=== PATIENT | male | born 1940 | race African-American/Black ===

== ENCOUNTER 2018-06-01 20:45 | Emergency (ER) | payer MEDICAID, MEDICARE, OTHER ==
[~2018-06-01] VITALS: Ht 182.9 cm; Wt 90.7 kg
--- NOTE | 2018-06-01 21:13 | Emergency Room Report ---
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 Per his it currently growing again. He has a history of seizure because of it. He is supposed be on Dilantin. Seizure is a rare occurrence. First time was in 2009. She witnessed a seizure today the last for a few minutes. He was tonic-clonic in nature. Continue with EMS who gave him Versed IM. He is seizure free now. He does have or trauma and incontinence. 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 This cause bleeding around the tumor and it was stopped 3 months ago. Unable to get any other history on this patient because of his postictal state. Allergies: Coded Allergies: No Known Allergies (Verified , 08/14/10) Patient History Past Medical History: see triage record, old chart reviewed, seizures, other Past Surgical History: other Pertinent Family History: none Social History: Denies: smoking Immunizations: other Reviewed Nursing Documentation: PMH: Agreed; PSxH: Agreed Nursing Documentation-PMH Hx Cardiac Problems: Yes - Stent placement Hx Hypertension: Yes Hx Diabetes: Yes Hx Seizures: Yes Review of Systems Eye: Denies: eye pain, blurred vision ENT: Denies: ear pain, nose congestion, throat swelling Respiratory: Denies: cough, shortness of breath Cardiovascular: Denies: chest pain, palpitations Gastrointestinal: Denies: abdominal pain, diarrhea, nausea, vomiting Musculoskeletal: Denies: back pain, joint pain Skin: Denies: rash Neurological: Reports: seizure; Denies: headache, numbness Endocrine: Denies: increased thirst, increased urine Hematologic/Lymphatic: Denies: easy bruising All Other Systems: negative except mentioned in HPI Physical Exam Vital Signs Date Time Temp Pulse Resp B/P (MAP) Pulse Ox O2 Delivery O2 Flow Rate FiO2 06/01/18 20:41 97.6 87 16 133/65 98 Room Air 97.5 vitals normal Sp02 EP Interpretation: reviewed, normal General Appearance: well appearing, no apparent distress, Stupor Head: normocephalic, atraumatic Eyes: bilateral eye PERRL, bilateral eye EOMI ENT: hearing grossly normal, normal pharynx, other - tongue abrasion Neck: full range of motion, supple, no meningismus Respiratory: chest non-tender, lungs clear, normal breath sounds Cardiovascular #1: regular rate, rhythm, no murmur Gastrointestinal: normal bowel sounds, non tender, no mass, no organomegaly, no bruit, non-distended Musculoskeletal: back normal, normal range of motion Neurologic: grossly normal Skin: warm/dry Procedures Critical Care Time Critical Care Time Critical care is mandated in this patient who presented with active seizure. Patient require my urgent intervention to attenuate the risks of neurological collapse which may lead to cardiovascular collapse and . Critical care time is 35 minutes excluding any reportable procedure. Critical care time included evaluation, multiple reevaluation, looking at old charts, interpreting laboratory and diagnostic data, discussing case with patient and family and consultants, and charting. Medical Decision Making Diagnostic Impression: Primary Impression: Epileptic seizure, generalized Additional Impressions: Brain mass Hematuria Qualified Codes: R31.0 - Gross hematuria Proteinuria Qualified Codes: R80.9 - Proteinuria, unspecified CARMEN (acute kidney injury) ER Course Patient presents with seizure. He has an active seizure here. Initially said that he was taking Dilantin but it was not on his medication list. I load him with Dilantin. Radiologist recommended MRI based on subtle findings on CT scan. Patient also had hematuria here. Unknown etiology. No obstruction. No infection. [facility] but [facility]. I spoke with Dr. Gayle, who accepted pt for transfer at [place]. This is based on his secondary insurance. His request transfer to [facility]. We'll go ahead and check to see if they have available beds. Laboratory Tests Test 06/01/18 22:25 06/01/18 22:30 Urine Color Fonda Urine Appearance Very cloudy Urine pH 5 (4.5-8.0) Urine Specific [place] 1.020 (1.005-1.035) Urine Protein 3+ (NEGATIVE) H Urine Glucose (UA) Negative (NEGATIVE) Urine Ketones Negative (NEGATIVE) Urine Occult Blood 5+ (NEGATIVE) H Urine Nitrite Negative (NEGATIVE) Urine Bilirubin Negative (NEGATIVE) Urine Urobilinogen 4 MG/DL (0.0-1.0) H Urine Leukocyte Esterase 3+ (NEGATIVE) H Urine RBC Tntc /HPF (0 - 0) H Urine WBC 0-2 /HPF (0 - 0) Urine Squamous Epithelial Cells Few /LPF (NONE/OCC) Urine Bacteria Few /HPF (NONE) White Blood Count 10.4 K/UL (4.8-10.8) Red Blood Count 4.27 M/UL (4.70-6.10) L Hemoglobin 13.4 G/DL (14.2-18.0) L Hematocrit 39.3 % (42.0-52.0) L Mean Corpuscular Volume 92 FL (80-99) Mean Corpuscular Hemoglobin 31.5 PG (27.0-31.0) H Mean Corpuscular Hemoglobin Concent 34.1 G/DL (32.0-36.0) Red Cell Distribution Width 12.2 % (11.6-14.8) Platelet Count 150 K/UL (150-450) Mean Platelet Volume 7.6 FL (6.5-10.1) Neutrophils (%) (Auto) 75.1 % (45.0-75.0) H Lymphocytes (%) (Auto) 16.5 % (20.0-45.0) L Monocytes (%) (Auto) 5.6 % (1.0-10.0) Eosinophils (%) (Auto) 0.5 % (0.0-3.0) Basophils (%) (Auto) 2.3 % (0.0-2.0) H Prothrombin Time 10.6 SEC (9.30-11.50) Prothromb Time International Ratio 1.0 (0.9-1.1) Activated Partial Thromboplast Time 23 SEC (23-33) Sodium Level 138 MMOL/L (136-145) Potassium Level 5.0 MMOL/L (3.5-5.1) Chloride Level 105 MMOL/L (98-107) Carbon Dioxide Level 26 MMOL/L (21-32) Anion Gap 7 mmol/L (5-15) Blood Urea Nitrogen 26 mg/dL (7-18) H Creatinine 2.0 MG/DL (0.55-1.30) H Estimat Glomerular Filtration Rate mL/min (>60) Glucose Level 168 MG/DL (74-106) H Calcium Level 8.9 MG/DL (8.5-10.1) Total Bilirubin 0.5 MG/DL (0.2-1.0) Aspartate Amino Transf (AST/SGOT) 20 U/L (15-37) Alanine Aminotransferase (ALT/SGPT) 25 U/L (12-78) Alkaline Phosphatase 142 U/L (46-116) H Total Protein 7.5 G/DL (6.4-8.2) Albumin 3.5 G/DL (3.4-5.0) Globulin 4.0 g/dL Albumin/Globulin Ratio 0.9 (1.0-2.7) L Phenytoin (Dilantin) Level < 0.5 ug/mL (10-20) L Lab Results Impression labs unremarkable EKG Diagnostic Results Rate: normal Rhythm: NSR ST Segments: no acute changes Rhythm Strip Diag. Results Rhythm Strip Time: 02:58 EP Interpretation: yes Rate: 66 Rhythm: NSR, no PVC's, no ectopy CT/MRI/US Diagnostic Results CT/MRI/US Diagnostic Results : Imaging Test Ordered: CT head Impression Read by radiologist. Area of increased density seen. May represent recurrent or residual mass. Also suspect a component of dural thickening and region of the surgical changes area. This may represent mass with subdural but less likely. Last Vital Signs Date Time Temp Pulse Resp B/P (MAP) Pulse Ox O2 Delivery O2 Flow Rate FiO2 06/01/18 20:41 97.6 87 16 133/65 98 Room Air 97.5 Status: improved Disposition: XFER SHT-TRM HOSP Condition: Stable JUSTIN GAYLE M.D. Jun 01, 2018 21:13
[2018-06-01 21:50] VITALS: BP 134/68
[2018-06-01 22:45] LABS: APPEARANCE,URINE VERY CLOUDY; BILIRUBIN, URINE NEGATIVE (NEGATIVE); COLOR,URINE ORANGE; GLUCOSE, URINE (UA) NEGATIVE (NEGATIVE); KETONES,URINE NEGATIVE (NEGATIVE); LEUKOCYTE ESTERASE ,URINE 3+ (NEGATIVE); NITRITE,URINE NEGATIVE (NEGATIVE); PH,URINE 5 (4.5-8.0); PROTEIN,URINE 3+ (NEGATIVE); UROBILINOGEN,URINE 4 MG/DL (0.0-1.0)
[2018-06-01 22:52] LABS: BASOPHILS % (AUTO) 2.3 % (0.0-2.0); EOSINOPHILS % (AUTO) 0.5 % (0.0-3.0); HEMATOCRIT 39.3 % (42.0-52.0); HEMOGLOBIN 13.4 G/DL (14.2-18.0); LYMPHOCYTES % (AUTO) 16.5 % (20.0-45.0); MEAN CORPUSCULAR VOLUME 92 FL (80-99); MONOCYTES % (AUTO) 5.6 % (1.0-10.0); NEUTROPHILS % (AUTO) 75.1 % (45.0-75.0); PLATELET COUNT 150 K/UL (150-450); RED BLOOD COUNT 4.27 M/UL (4.70-6.10); RED CELL DISTRIBUTION WIDTH 12.2 % (11.6-14.8); WHITE BLOOD COUNT 10.4 K/UL (4.8-10.8)
[2018-06-01 22:58] LABS: ANION GAP 7 mmol/L (5-15); BLOOD UREA NITROGEN 26 mg/dL (7-18); CALCIUM 8.9 MG/DL (8.5-10.1); CARBON DIOXIDE 26 MMOL/L (21-32); CHLORIDE 105 MMOL/L (98-107); SODIUM 138 MMOL/L (136-145)
[2018-06-01 23:03] LABS: ALANINE AMINOTRANSFERASE 25 U/L (12-78); ALBUMIN 3.5 G/DL (3.4-5.0); ALBUMIN/GLOBULIN RATIO 0.9 (1.0-2.7); ALKALINE PHOSPHATASE 142 U/L (46-116); ASPARTATE AMINO TRANSFERASE 20 U/L (15-37); BILIRUBIN,TOTAL 0.5 MG/DL (0.2-1.0)
[2018-06-01 23:11] VITALS: BP 154/71
[2018-06-01] MEDS ORDERED: LORazepam Inj 2mg/ml 1ml IV ONE (23:30)
[2018-06-01] MEDS ORDERED: LORazepam Inj 2mg/ml 1ml ONE (23:30)
[2018-06-01] MEDS ORDERED: Phenytoin 1,000 MG in NS 275 ML IVPB ONE (23:30)
[2018-06-02 01:37] VITALS: BP 109/43
[2018-06-02] MEDS ORDERED: LISINOPRIL40 MG ORAL (02:41)
[2018-06-02] MEDS ORDERED: NOVOLOG100 UNIT/3 SUBQ ×2 (02:41)
[2018-06-02] MEDS ORDERED: METOPROLOL TART50 MG ORAL (02:41)
[2018-06-02] MEDS ORDERED: ATORVASTATIN CA40 MG ORAL (02:41)
[2018-06-02] MEDS ORDERED: COMBIGAN EYE DRO5 ML BOTH EYES (02:41)
[2018-06-02] MEDS ORDERED: AMLODIPINE BESY10 MG ORAL (02:41)
[2018-06-02] MEDS ORDERED: GABAPENTIN300 MG ORAL (02:41)
[2018-06-02] MEDS ORDERED: CALCITRIOL0.25 MCG PO (02:41)
[2018-06-02 03:43] VITALS: BP 122/57
[2018-06-02 04:04] VITALS: BP 122/57
--- NOTE | 2018-06-02 09:25 | Diagnostic Imaging Report ---
Indications: Seizures Technique: Spiral acquisitions obtained through the brain. Angled axial and coronal 5 x 5 mm slices were reconstructed. Total dose length product 1361.76 mGycm. CTDI vol(s) 70.38 mGy. Dose reduction achieved using automated exposure control Comparison: 08/14/2010 CT, also MRI dated 08/18/2010 Findings: Since the previous study, interim frontal craniotomy with resection of previously demonstrated calcified extra-axial mass. Previously demonstrated mass effect is no longer evident. There is cortical encephalomalacia of the parasagittal and inferior frontal lobe. There is also high attenuation of what appears to be much of the frontal cortex, both anterolaterally and in the parasagittal region. Some of this corresponds to areas of enhancement described on the prior MRI. The parasagittal region area of high attenuation measures 11 mm transverse by 23 mm AP by 30 mm craniocaudad and is quite possibly extra-axial, appearing intimately associated with the falx at its medial border. This also appears to correspond to area of abnormal enhancement seen on prior MRI. There is no mass effect. There is low attenuation of the associated deep white matter. A focal right-sided parafalcine high attenuation lesion is seen within the interhemispheric fissure to the right of the falx more cephalad than the above-mentioned abnormality. This measures 20 mm AP by 6 mm transverse by 16 mm craniocaudad. This is not evident on the prior CT or MRI. A small lacunar infarct is seen in the right caudate head, not evident previously. There is mild prominence of the ventricles and to lesser extent extra-axial CSF spaces. Visualized orbits and sinuses are unremarkable. Impression: Since 08/14/2010, interim resection of previously demonstrated dominant left frontal extra-axial mass, with resolution of previously demonstrated mass effect. Some underlying low-attenuation within the adjacent white matter most likely reflects chronic encephalomalacia, but a component of vasogenic edema is also possible Areas of peripheral hyperattenuation noted. That in the anterior inferior parasagittal region appears to correspond with abnormal enhancement seen on prior MRI and likely reflects recurrent/residual tumor. The more anterolateral higher attenuation is less clearly extra-axial, and well likely representing residual or recurrent tumor, could also represent cortical petechial hemorrhage. 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 This measures 20 x 6 x 16 mm and does not result in any significant mass effect This agrees with the preliminary interpretation provided overnight by [facility] teleradiology service. The CT scanner at [facility] is accredited by the [employer] and the scans are performed using protocols designed to limit radiation exposure to as low as reasonably achievable to attain images of sufficient resolution adequate for diagnostic evaluation.
--- NOTE | 2018-06-02 09:26 | Diagnostic Imaging Report ---
Indication: Dyspnea Technique: One view of the chest Comparison: 08/14/2010 Findings: Left hemidiaphragm is elevated. There is atelectasis at the left lung base. There are atelectatic changes in the right perihilar region as well. The heart size is upper limits normal. There are median sternotomy sutures Impression: Elevated left hemidiaphragm with basilar atelectasis Right perihilar atelectasis Other findings as noted
== END 2018-06-02 03:50 | disposition short-term general hospital (02) ==
LOC: EDBD 20:45 → EMR 21:34
DX: G40.409 Other generalized epilepsy and epileptic syndromes, not intractable, without status epilepticus (principal); R22.0 Localized swelling, mass and lump, head; R31.9 Hematuria, unspecified; I10 Essential (primary) hypertension; E11.9 Type 2 diabetes mellitus without complications
CPT/HCPCS: 36415; 70450; 71045; 80053; 80185; 81003; 82962; 85025; 85610; 85730; 96361; 96365; 96375; 99291; J1165; J7050